=== PATIENT | male | born 1975 | race Caucasian/White ===

== ENCOUNTER 2023-04-15 08:00 | Day surgery (SDC) | payer OTHER, BC ==
[~2023-04-15 08:00] MED LIST: Acetaminophen 325 MG Tab PO SCH; Lactated Ringers 1,000 ML IV SCH; Morphine 8 MG, EPINEPHrine 0.3 MG, Cefuroxime 750 MG, Ketorolac 30 MG, Sodium Chloride ... PRN; Pregabalin 25 MG Cap PO SCH; Sodium Chloride 0.9% 10 ML Syringe FLUSH PRN; Sodium Chloride 0.9% 10 ML Syringe FLUSH SCH; oxyCODONE ER 10 MG TAB.ER PO SCH
[2023-04-15] MEDS ORDERED: Tranexamic Acid 1,000 MG/10 ML Vial ONE (09:03)
[2023-04-15] MEDS ORDERED: Vancomycin 1 GM SDV ONE (09:03)
[2023-04-15] MEDS ORDERED: Ropivacaine 0.5% 5 MG/ML 30 ML SDV ONE (09:36)
[2023-04-15] MEDS ORDERED: Midazolam 1 MG/ML 2 ML SDV ONE (09:38)
[2023-04-15] MEDS ORDERED: Propofol 200 MG/20 ML SDV ONE (09:38)
[2023-04-15] MEDS ORDERED: Lidocaine 2% 5 ML SDV ONE (09:42)
[2023-04-15] MEDS ORDERED: ceFAZolin 2 GM Vial ONE (09:42)
[2023-04-15] MEDS ORDERED: fentaNYL 100 MCG/2 ML SDV ONE (11:10)
[2023-04-15] MEDS ORDERED: EPINEPHrine 1 MG/ML SDV ONE (11:46)
[2023-04-15] MEDS ORDERED: oxyCODONE 5 MG Tab PO SCH (15:50)
== END 2023-04-15 16:00 | disposition home or self-care (01) ==
LOC: JD.SDS 08:00
PROVIDERS: ATTEND Orthopaedic Surgery
DX: M17.12 Unilateral primary osteoarthritis, left knee (principal); K51.00 Ulcerative (chronic) pancolitis without complications; Z79.899 Other long term (current) drug therapy
CPT/HCPCS: 0055T; 27447; 73560; 97116; 97161; A9270; C1713; C1776; J0171; J0690; J0697; J1885; J2250; J2270; J2704; J2795; J3010; J3370; J7030; J7120; 01402; 64447; J3490

== ENCOUNTER 2024-03-12 07:54 | Day surgery (SDC) | payer OTHER, BC ==
[~2024-03-12 07:54] MED LIST changes: -Acetaminophen 325 MG Tab PO SCH; +Acetaminophen/HYDROcodone 325-5 MG Tab PO PRN; -Lactated Ringers 1,000 ML IV SCH; -Morphine 8 MG, EPINEPHrine 0.3 MG, Cefuroxime 750 MG, Ketorolac 30 MG, Sodium Chloride ... PRN; -Pregabalin 25 MG Cap PO SCH; +Propofol 200 MG/20 ML SDV ONE; +ceFAZolin 2 GM Vial ONE; +fentaNYL 250 MCG/5 ML SDV ONE; -oxyCODONE ER 10 MG TAB.ER PO SCH
[2024-03-12] MEDS: Lactated Ringers 1,000 ML IV SCH (08:15)
[2024-03-12] MEDS ORDERED: HYDROmorphone 0.5 MG/0.5 ML Syringe ONE ×2 (09:24→09:25)
[2024-03-12] MEDS: Bupivacaine 0.25% 10 ML SDV ONE (10:00)
[2024-03-12] MEDS ORDERED: fentaNYL 100 MCG/2 ML SDV IVPUSH PRN (10:07)
[2024-03-12] MEDS ORDERED: HYDROmorphone 0.5 MG/0.5 ML Syringe IVPUSH PRN (10:07)
[2024-03-12] MEDS ORDERED: Ondansetron 4 MG/2 ML SDV IVPUSH PRN (10:07)
== END 2024-03-12 13:24 | disposition home or self-care (01) ==
LOC: JD.SDS 07:54
PROVIDERS: ATTEND Orthopaedic Surgery
DX: T84.84XA Pain due to internal orthopedic prosthetic devices, implants and grafts, initial encounter (principal); Y83.8 Other surgical procedures as the cause of abnormal reaction of the patient, or of later complication, without mention of misadventure at the time of the procedure
CPT/HCPCS: 29876; J0665; J0690; J1171; J2704; J3010; J7120; 01400